=== PATIENT | female | born 1985 | race Caucasian/White ===

== ENCOUNTER 2017-06-06 07:26 | Day surgery (SDC) | payer OTHER ==
[2017-06-01 11:35] VITALS: BMI 35.2
--- NOTE | 2017-06-05 19:33 | PREOP ---
DATE OF ADMISSION: 06/06/2017 ADMITTING DIAGNOSIS: Chronic pansinusitis, nasal polyps. HISTORY OF PRESENT ILLNESS: This 31-year-old female has a longstanding history of nasal and sinus problems. She has had nasal obstruction including snoring, chronic mouth breathing, facial pain, and sinus pain and pressure. She also has anosmia. She has had chronic pansinusitis for several years. Previously recommended surgery was postponed because of and delivery of her baby girl. She is now admitted for endoscopic sinus surgery. PAST MEDICAL HISTORY: Primary medical doctor is Dr. Bo Kaye. MEDICAL ILLNESSES: Patient does have history of anemia and asthma and hypothyroidism. She has undergone previous tonsillectomy as well as sections. There are no reported problems with anesthesia. ALLERGIES TO MEDICATIONS: None known. PRESENT MEDICATIONS: Include levothyroxine, Lexapro, Percocet, ProAir, vitamin D3, and Flovent. PHYSICAL EXAMINATION: General: Patient is well developed female, in no distress. HEENT: Head is normal. Eyes are clear. Ears are unremarkable. The nose has deviated septum, turbinates are hypertrophic. Nasal endoscopy demonstrates moderate nasal polyps obstructing the airway on both sides. The inferior turbinates are edematous as are the middle turbinates. The middle meati have polyps bilaterally. The remainder of her head, neck examination is unremarkable. LABORATORY: Preoperative labs are pending. CT scan of the paranasal sinuses performed at [facility] May 07, 2017, demonstrates chronic sinusitis involving frontal sinuses, ethmoid sinuses, maxillary sinuses, and sphenoid sinuses. There is obstruction of the ostiomeatal units. Orbits and facial bones are intact. IMPRESSION: Chronic pansinusitis. PLAN: Endoscopic sinus surgery to address ethmoid, maxillary, frontal, and sphenoid sinuses. INFORMED CONSENT: Patient understands the indications, alternatives, nature of risks and benefits of proposed surgery. Potential complications including but not limited to anesthesia, bleeding, infection, recurrence, numbness, reduced sense of smell , eye injury or brain injury were discussed in detail. She understands and accepts these risks and wishes to proceed with surgery. Questions were answered fully. IRINA CABRERA M.D. ANNAMARIA/[id number] [facility]
--- NOTE | 2017-06-06 08:52 | HP ---
History & Physical Update - History History: No Change - Physical Physical: No Change - Assessment Assessment: No Change - Plan Plan: No Change
[2017-06-06] MEDS ORDERED: PROPOFOL 20 ML ONE (08:53)
[2017-06-06] MEDS ORDERED: MIDAZOLAM HCL 2 MG/2 ML SINGLE DOSE VIAL ONE (08:54)
[2017-06-06] MEDS ORDERED: BACITRACIN 15 GM TUBE TOPICAL OINTMENT ONE (09:20)
[2017-06-06] MEDS ORDERED: COCAINE HCL 4% TOPICAL SOLUTION 4 ML BOTTLE TP ONE ×2 (09:39→09:42)
[2017-06-06] MEDS ORDERED: DEXAMETHASONE SOD PHOSPHATE 4 MG/1 ML VIAL ONE ×2 (09:40)
[2017-06-06] MEDS ORDERED: HYDROmorphone HCL/PF 1 MG/ML VIAL (FOR PYXIS CHARGING ONLY) ONE (10:56)
[2017-06-06] MEDS ORDERED: BACITRACIN 15 GM TUBE TOPICAL OINTMENT TP ONE (11:29)
[2017-06-06] MEDS ORDERED: TRIMETHOBENZAMIDE HCL 200MG/2ML INJ IM PRN (11:41)
[2017-06-06] MEDS ORDERED: oxyCODONE HCL 5 MG TABLET PO PRN (11:41)
--- NOTE | 2017-06-06 11:42 | OP ---
Operative Note - Note: Operative Date: 06/06/17 Pre-Operative Diagnosis: chronic pansinusitis with polyposis Operation: bilateral endoscopic ethmoidectomy, anterior and posterior. bilateral endoscopic maxillary antrostomy with removal of tissue. bilateral endoscopic frontal sinus exploration. bilateral endoscopic sphenoidotomy. image guidance. therapeutic outfracture of inferior turbinates, bilateral Findings: chronic pansinusitis with polyposis, inferior turbinate hypertrophy Implants: none Post-Operative Diagnosis: Other (same as pre-op with inferior turbinate hypertrophy) Surgeon: Jurgen Sanchez Anesthesiologist/JEWEL STAKER: Leydi Miranda Anesthesia: General Specimens Removed: left nasal polyp, ethmoid and maxillary sinus tissue. right nasal polyp, ethmoid and maxillary sinus tissue. right and left ethmoid sinus tissue (from sock) Estimated Blood Loss (mls): 50 Blood Volume Replaced (mls): 0 Operative Report Dictated: Yes
[2017-06-06] MEDS ORDERED: LACTATED RINGERS SOLUTION 1,000 ML IV SCH (11:45)
[2017-06-06] MEDS ORDERED: ONDANSETRON 4 MG/2 ML VIAL IVPUSH PRN (11:48)
[2017-06-06] MEDS: HYDROmorphone HCL CARPU-JECT 1 MG/1 ML DISP.SYRIN IVPUSH PRN ×2 (11:55→12:35)
[2017-06-06] MEDS ORDERED: HYDROmorphone HCL CARPU-JECT 2 MG/1 ML DISP.SYRIN ONE (12:00)
[2017-06-06 12:14] VITALS: TEMP 98.9
[2017-06-06] MEDS ORDERED: ACETAMINOPHEN 1000 MG/100 ML VIAL (NON FORMULARY) IVPB ONE ×2 (12:35→14:58)
[2017-06-06] MEDS ORDERED: ACETAMINOPHEN INJECTION 100 ML IVPB ONE (12:44)
[2017-06-06 16:23] VITALS: BP 120/66; PULSE 79
--- NOTE | 2017-06-07 16:34 | PATH ---
Surgical Pathology Report Patient Name: MARISA ENG [facility]. Rec. #: [id number] /Age/Gender: 1985 (Age: 31) / F Account: [id number] Location: [facility] SURGICAL Taken: 06/06/2017 Received: 06/06/2017 Reported: 06/07/2017 Physicians: Jurgen Sanchez M.D. Specimen(s) Received A: LEFT NASAL POLYPS AND ETHMOID TISSUE MAXILLARY TISSUE B: RIGHT NASAL POLYPS AND ETHMOID TISSUE MAXILLARY TISSUE C: RIGHT AND LEFT ETHMOID TISSUES Clinical History Bilateral chronic ethmoid, frontal, sphenoidal sinusitis Final Diagnosis A. NASAL POLYPS, ETHMOID AND MAXILLARY TISSUE, LEFT, EXCISION: NASAL POLYPS, INFLAMMATORY TYPE. SINONASAL MUCOSA WITH CHRONIC INFLAMMATION AND FIBROSIS; FRAGMENTS OF SCLEROTIC APPEARING BONE. B. NASAL POLYPS, ETHMOID AND MAXILLARY TISSUE, EXCISION: NASAL POLYPS, INFLAMMATORY TYPE. SINONASAL MUCOSA WITH CHRONIC INFLAMMATION AND FIBROSIS; FRAGMENTS OF SCLEROTIC APPEARING BONE. C. ETHMOID TISSUE RIGHT AND LEFT, ETHMOIDECTOMY: SINONASAL MUCOSA WITH ACTIVE AND CHRONIC INFLAMMATION; FRAGMENTS OF SCLEROTIC APPEARING BONE. Electronically Signed Allen Pires M.D. Gross Description A. Received in formalin labeled "left nasal polyps and ethmoid tissue, maxillary tissue" is a 1.7 x 1.1 x 0.2 cm aggregate of putnam-pink soft tissue and possible bone fragments. The specimen is submitted in toto in one cassette, following decalcification. B. Received in formalin labeled "right nasal polyps and ethmoid tissue, maxillary tissue" is a 2.0 x 1.8 x 0.3 cm aggregate of putnam-pink soft tissue and possible bone fragments. The specimen is submitted in toto in one cassette, following decalcification. C. Received in formalin labeled "right and left ethmoid tissues" is a 5.0 x 4.3 x 0.8 cm aggregate of putnam-red, hemorrhagic soft tissue fragments. A call center representative portion is submitted in one cassette. 06/06/201706/06/2017
--- NOTE | 2017-06-08 08:55 | OP ---
DATE OF OPERATION: 06/06/2017 PREOPERATIVE DIAGNOSIS: Chronic pansinusitis with nasal polyps, anosmia. POSTOPERATIVE DIAGNOSIS: Chronic pansinusitis with nasal polyps, anosmia. PROCEDURE: 1. Bilateral endoscopic ethmoidectomy anterior and posterior. 2. Bilateral endoscopic maxillary antrostomy with removal of tissue. 3. Bilateral endoscopic frontal sinus exploration. 4. Bilateral endoscopic sphenoidotomy. 5. Image guidance. 6. Therapeutic outfracture of inferior turbinates. SURGEON: Jurgen Sanchez MD ANESTHESIOLOGIST: Leydi Miranda DO ANESTHESIA: General via endotracheal tube. INDICATIONS: This 31-year-old female has had longstanding nasal and sinus problems including obstruction, drainage, and discomfort. She also has a poor sense of smell. She has failed to improve with appropriate medical therapy. Serial CT scans demonstrate pansinusitis. Bilateral nasal polyps are present on endoscopy with significant obstruction. She is now brought to surgery for treatment. FINDINGS: Chronic polypoid sinusitis, bilateral nasal polyps, inferior turbinate hypertrophy. DESCRIPTION OF PROCEDURE: The patient was brought to the operating room and placed on the operating table in supine position. General endotracheal anesthesia was induced to a satisfactory level. She was prepped and draped in the usual fashion for surgery. The nasal cavities were packed with cocaine 4% topically. CT scan data was used with the [employer] Navigation system. The patient was registered, and navigation was used intermittently throughout the case in order to identify surgical dissection, locations, and landmarks. The pledgets were removed. Nasal endoscopy with a 0-degree scope showed bilateral inferior turbinate hypertrophy as well as marked nasal polyposis with polypoid degeneration of both middle turbinates. Lidocaine with epinephrine was infiltrated into the middle turbinates and accessible polyps as well as the bilateral nasal evans. Additional cocaine 4% was packed within the nasal meatus. The left paranasal sinus was first addressed. Accessible polyps were removed with the ethmoid forceps. After entering the middle meatus, the uncinate process was removed. Anterior and posterior ethmoidectomy was performed with the ethmoid forceps and Xomed microdebrider with guidance. Markedly redundant polypoid tissue from the middle turbinate was also removed. The lamina papyracea and the fovea ethmoidalis were preserved. The sphenoid ethmoid recess was identified. Polypoid tissue removed from it, and sphenoidotomy created. Attention was then turned towards the left maxillary sinus. The natural ostium was sounded. A middle meatal enterostomy was created, and tissue was removed from the sinus. Next, the frontal recess was dissected with the 70-degree scope and giraffe forceps. The frontal ostium was identified, position confirmed with the frontal sinus pointer. Mild oozing was controlled with electrocauterization. The right paranasal sinus was then addressed. Polyps were removed from the middle meatus with forceps. Uncinate process was removed. Anterior and then posterior ethmoidectomy was performed with forceps and Xomed microdebrider with guidance. Redundant tissue was removed from the polyp middle turbinate. The lamina papyracea and the fovea ethmoidalis were preserved. The sphenoid ethmoid recess was identified, and a sphenoidotomy created. The right maxillary sinus was then sounded, and antrostomy was created removing maxillary sinus tissue. Next, the frontal sinus recess was dissected using the 70-degree scope and giraffe forceps. The frontal ostium was identified and confirmed with the navigation system. Mild oozing was controlled with electrocauterization. Finally, inferior turbinates were mildly obstructive, but this was primarily soft tissue. Therapeutic outfracture was performed bilaterally. Reinspection of the sinuses found them to be patent and open without bleeding. Nasal packing was placed and hydrated. Telfa gauze was packed in the inferior nasal cavities. Mustache dressing was placed. The patient tolerated the procedure well. She was then awakened from general anesthesia and transferred to the PACU in stable condition. Estimated blood loss was 50 mL. She received crystalloid during the procedure. Specimens included left nasal polyp ethmoid maxillary sinus tissue as well as right polyp ethmoid and maxillary sinus tissue, which were sent to Pathology for studies. There was also right and left ethmoid tissue from the suction trap. There were no complications. JURGEN SANCHEZ M.D. [id number] [facility]
== END 2017-06-06 15:10 | disposition home or self-care (01) ==
LOC: JASU-SURG 07:26
PROVIDERS: ATTEND Otolaryngology
PROC: 09TV4ZZ Resection of Left Ethmoid Sinus, Percutaneous Endoscopic Approach (ICD-10-PCS; 2017-06-06)
PROC: 09TU4ZZ Resection of Right Ethmoid Sinus, Percutaneous Endoscopic Approach (ICD-10-PCS; 2017-06-06)
PROC: 8E09XBZ Computer Assisted Procedure of Head and Neck Region (ICD-10-PCS; 2017-06-06)
PROC: 099R4ZZ Drainage of Left Maxillary Sinus, Percutaneous Endoscopic Approach (ICD-10-PCS; 2017-06-06)
PROC: 099Q4ZZ Drainage of Right Maxillary Sinus, Percutaneous Endoscopic Approach (ICD-10-PCS; 2017-06-06)
PROC: 8E09XBZ Computer Assisted Procedure of Head and Neck Region (ICD-10-PCS; principal; 2017-06-06 09:00)
DX: J32.4 Chronic pansinusitis (principal); J33.9 Nasal polyp, unspecified; J34.3 Hypertrophy of nasal turbinates
CPT/HCPCS: 84703; 88304-TC; 88311-TC; 94760

== ENCOUNTER 2020-04-30 22:50 | Emergency (ER) | payer OTHER ==
[~2020-04-30 22:50] MED LIST: LIDOCAINE PATCH REMOVAL MC SCH
[2020-04-30 22:58] VITALS: BP 125/77; PULSE 100; TEMP 98.8; BMI 36.1
[2020-04-30] MEDS ORDERED: ACETAMINOPHEN 325 MG TABLET (FP) PO ONE (23:18)
[2020-04-30] MEDS ORDERED: ACETAMINOPHEN 325 MG TABLET (FP) ONE (23:20)
[2020-04-30] MEDS ORDERED: METHOCARBAMOL 500 MG TABLET PO ONE (23:42)
[2020-04-30] MEDS ORDERED: LIDOCAINE 5% TOPICAL PATCH TP ONE (23:42)
[2020-04-30] MEDS ORDERED: METHOCARBAMOL 500 MG TABLET ONE (23:47)
[2020-04-30] MEDS ORDERED: LIDOCAINE 5% TOPICAL PATCH ONE (23:47)
[2020-05-01] MEDS ORDERED: KETOROLAC TROMETHAMINE 60 MG/2 ML VIAL IM ONE (00:21)
[2020-05-01] MEDS ORDERED: KETOROLAC TROMETHAMINE 60 MG/2 ML VIAL ONE (00:38)
== END 2020-05-01 00:43 | disposition home or self-care (01) ==
LOC: JER 22:50
PROC: 3E0233Z Introduction of Anti-inflammatory into Muscle, Percutaneous Approach (ICD-10-PCS; principal; 2020-04-30)
DX: M54.5 Low back pain (principal)
CPT/HCPCS: 72100-TC-FY; 84703; 99285-25

== ENCOUNTER 2022-02-19 20:30 | Inpatient (IN) | payer OTHER ==
[2022-02-19] MEDS ORDERED: SODIUM CHLORIDE 0.9% 500 ML INFUS.BAG IV ONE (21:36)
[2022-02-19] MEDS ORDERED: ACETAMINOPHEN 1000 MG/100 ML BAG IVPB ONE (21:36)
[2022-02-19] MEDS ORDERED: ONDANSETRON 4 MG/2 ML VIAL IVPUSH ONE (21:37)
[2022-02-19] MEDS ORDERED: LIDOCAINE 5% TOPICAL PATCH TP ONE (21:38)
[2022-02-19] MEDS ORDERED: LIDOCAINE 5% TOPICAL PATCH ONE (22:13)
[2022-02-19] MEDS ORDERED: ONDANSETRON 4 MG/2 ML VIAL ONE (22:13)
[2022-02-19] MEDS ORDERED: ACETAMINOPHEN INJECTION 100 ML IVPB ONE (22:13)
[2022-02-19] MEDS: LIDOCAINE PATCH REMOVAL MC SCH (22:26)
[2022-02-19 22:27] LABS: BASO % 0.7 % (0-2.0); EOS % 6.2 % (0-4.5); HEMATOCRIT 41.6 % (32.4-45.2); HEMOGLOBIN 13.9 GM/dL (10.7-15.3); LYMPH % 28.2 % (8-40); MCH 26.9 pg (25.7-33.7); MCHC 33.4 g/dl (32.0-36.0); MEAN CELL VOLUME 80.5 fl (80-96); MEAN PLT VOLUME 8.6 fl (7.5-11.1); MONO % 5.7 % (3.8-10.2); NEUT % 59.2 % (42.8-82.8); PLATELET COUNT 174 10^3/uL (134-434); RBC 5.18 M/mm3 (3.60-5.2); RDW 15.2 % (11.6-15.6); WHITE BLOOD COUNT 9.1 K/mm3 (4.0-10.0)
[2022-02-19 22:30] LABS: EPI CELLS >36 /uL (0-25.1); HYALINE CASTS 6 /uL (0-3.1); URINE APPEARANCE CLEAR; URINE BACTERIA 3885 /uL (0-1359); URINE BILIRUBIN NEGATIVE (NEGATIVE); URINE COLOR YELLOW; URINE GLUCOSE (UA) NEGATIVE (NEGATIVE); URINE KETONE TRACE (NEGATIVE); URINE LEUK ESTERASE TRACE (NEGATIVE); URINE NITRITE NEGATIVE (NEGATIVE); URINE PROTEIN TRACE (NEGATIVE); URINE RBC 9 /uL (0-23.9); URINE UROBILINOGEN 0.2 mg/dL (0.2-1.0); URINE WBC 85 /uL (0-25.8)
[2022-02-19 22:53] LABS: ALBUMIN 4.7 g/dl (3.4-5.0); CALCIUM 9.3 mg/dL (8.5-10.1)
[2022-02-19 22:54] LABS: BLOOD UREA NITROGEN 16.7 mg/dL (7-18)
[2022-02-19 22:58] LABS: BILIRUBIN,TOTAL 0.3 mg/dL (0.2-1)
[2022-02-19] MEDS ORDERED: morphine CARPU-JECT 4 MG/1 ML DISP.SYRIN IVPUSH ONE (23:19)
[2022-02-20] MEDS ORDERED: ONDANSETRON *ODT* 4 MG TABLET SL ONE (01:05)
[2022-02-20] MEDS ORDERED: morphine SULFATE 4 MG/ML VIAL ONE (01:10)
[2022-02-20] MEDS ORDERED: ONDANSETRON *ODT* 4 MG TABLET ONE (01:10)
[2022-02-20] MEDS ORDERED: PIPERACILLIN/TAZOB 3.375 GM 3.375 GM in DEXTROSE 5%-WATER - 50 ML IVPB ONE (04:00)
[2022-02-20] MEDS ORDERED: ACETAMINOPHEN 325 MG TABLET (FP) PO PRN (04:15)
[2022-02-20 04:24] LABS: INR 1.25 (0.83-1.09); PROTHROMBIN TIME (PATIENT) 14.4 SEC (9.7-13.0)
[2022-02-20 04:27] LABS: ACTIVATED PTT 32.3 SECONDS (25.2-36.5)
[2022-02-20] MEDS ORDERED: ALBUTEROL SO4 HFA INHALER IH PRN (04:44)
[2022-02-20] MEDS ORDERED: CEFTRIAXONE 1 GM/50 ML BAG ONE (04:50)
[2022-02-20] MEDS: CEFTRIAXONE 1 GM in DEXTROSE 5%-WATER - 50 ML IVPB SCH (05:00)
[2022-02-20] MEDS: SODIUM CHLORIDE 1,000 ML IV SCH ×2 (05:00→23:00)
[2022-02-20] MEDS ORDERED: METOCLOPRAMIDE HCL INJECTION 10 MG/2 ML VIAL IVPUSH PRN (05:10)
[2022-02-20] MEDS ORDERED: ALBUTEROL SO4 HFA INHALER IH ONE (06:22)
[2022-02-20] MEDS ORDERED: METOCLOPRAMIDE HCL INJECTION 10 MG/2 ML VIAL ONE (06:22)
[2022-02-20] MEDS ORDERED: LEVOTHYROXINE NA 200 MCG TABLET PO SCH (07:00)
[2022-02-20 07:20] LABS: BASO % 0.7 % (0-2.0); EOS % 6.5 % (0-4.5); HEMATOCRIT 38.3 % (32.4-45.2); HEMOGLOBIN 12.6 GM/dL (10.7-15.3); MCH 26.7 pg (25.7-33.7); MEAN CELL VOLUME 80.9 fl (80-96); MONO % 5.7 % (3.8-10.2); NEUT % 58.1 % (42.8-82.8); PLATELET COUNT 159 10^3/uL (134-434); RBC 4.73 M/mm3 (3.60-5.2); RDW 14.8 % (11.6-15.6); WHITE BLOOD COUNT 7.1 K/mm3 (4.0-10.0)
[2022-02-20 07:47] LABS: CALCIUM 8.5 mg/dL (8.5-10.1); INR 1.26 (0.83-1.09); PROTHROMBIN TIME (PATIENT) 14.5 SEC (9.7-13.0)
[2022-02-20 07:48] LABS: ALBUMIN 3.9 g/dl (3.4-5.0); BLOOD UREA NITROGEN 15.2 mg/dL (7-18); MAGNESIUM 1.9 mg/dL (1.8-2.4)
[2022-02-20 07:51] LABS: PHOSPHOROUS 3.3 mg/dL (2.5-4.9)
[2022-02-20 07:52] LABS: TOT PROT 6.9 g/dl (6.4-8.2)
[2022-02-20 07:53] LABS: BILIRUBIN,TOTAL 0.4 mg/dL (0.2-1)
[2022-02-20] MEDS: LEVOTHYROXINE PO SCH (09:14)
[2022-02-20] MEDS ORDERED: LEVOTHYROXINE SODIUM 100 MCG VIAL IVPUSH SCH (10:00)
[2022-02-20] MEDS ORDERED: ZOLPIDEM TARTRATE 5 MG TABLET PO PRN (10:00)
[2022-02-20] MEDS: PANTOPRAZOLE 40 MG TABLET PO SCH (11:30)
[2022-02-20] MEDS: VENLAFAXINE HCL 75 MG E.R. CAPSULES PO SCH (11:30)
[2022-02-20] MEDS ORDERED: PANTOPRAZOLE 40 MG TABLET PO ONE (11:44)
[2022-02-20] MEDS ORDERED: ONDANSETRON 4 MG/2 ML VIAL ONE (17:51)
[2022-02-20] MEDS: ONDANSETRON 4 MG/2 ML VIAL IVPUSH PRN (17:52)
[2022-02-20 18:57] VITALS: BMI 36.8
[2022-02-20] MEDS: LIDOCAINE PATCH REMOVAL MC SCH (21:25)
[2022-02-20] MEDS ORDERED: traZODone HCL 100 MG TABLET (FP) PO SCH (22:00)
[2022-02-21] MEDS: ONDANSETRON 4 MG/2 ML VIAL IVPUSH PRN (04:03)
[2022-02-21] MEDS: LEVOTHYROXINE PO SCH (06:19)
[2022-02-21] MEDS: SODIUM CHLORIDE 1,000 ML IV SCH (06:20)
[2022-02-21 07:17] LABS: CALCIUM 8.2 mg/dL (8.5-10.1)
[2022-02-21 07:18] LABS: ALBUMIN 3.1 g/dl (3.4-5.0); BLOOD UREA NITROGEN 12.6 mg/dL (7-18)
[2022-02-21 07:21] LABS: CREATININE 0.9 mg/dL (0.55-1.3)
[2022-02-21 07:22] LABS: TOT PROT 5.8 g/dl (6.4-8.2)
[2022-02-21 07:23] LABS: BILIRUBIN,TOTAL 0.3 mg/dL (0.2-1)
[2022-02-21 07:24] LABS: HEMOGLOBIN 11.2 GM/dL (10.7-15.3); MCH 26.9 pg (25.7-33.7); MCHC 33.1 g/dl (32.0-36.0); MEAN CELL VOLUME 81.4 fl (80-96); MEAN PLT VOLUME 9.2 fl (7.5-11.1); PLATELET COUNT 130 10^3/uL (134-434); RBC 4.18 M/mm3 (3.60-5.2); RDW 14.7 % (11.6-15.6); WHITE BLOOD COUNT 5.8 K/mm3 (4.0-10.0)
[2022-02-21] MEDS ORDERED: BUPIVACAINE HCL/PF 0.5% (5MG/ML) 10 ML VIAL ONE (07:29)
[2022-02-21] MEDS ORDERED: PROPOFOL 20 ML ONE (08:03)
[2022-02-21] MEDS ORDERED: MIDAZOLAM HCL 2 MG/2 ML SINGLE DOSE VIAL ONE (08:03)
[2022-02-21] MEDS ORDERED: SUCCINYLCHOLINE CHLORIDE 200 MG/10 ML SYRINGE ONE (08:03)
[2022-02-21] MEDS ORDERED: ROCURONIUM BROMIDE 50 MG/5 ML SYRINGE ONE (08:03)
[2022-02-21] MEDS ORDERED: ALBUTEROL SO4 HFA INHALER IH ONE (08:03)
[2022-02-21] MEDS ORDERED: LACTATED RINGERS SOLUTION 1,000 ML IV SCH (08:15)
[2022-02-21] MEDS ORDERED: ONDANSETRON 4 MG/2 ML VIAL ONE (08:33)
[2022-02-21] MEDS ORDERED: DEXAMETHASONE SOD PHOSPHATE 4 MG/1 ML VIAL ONE (08:33)
[2022-02-21] MEDS ORDERED: HYDROmorphone HCl 2 MG/ML VIAL ONE (09:18)
[2022-02-21] MEDS ORDERED: NEOSTIGMINE METHYLSULFATE 0.5 MG/1 ML - 10 ML MDV ONE (10:09)
[2022-02-21] MEDS ORDERED: ZOLPIDEM TARTRATE 5 MG TABLET PO PRN (12:16)
[2022-02-21] MEDS ORDERED: ALBUTEROL SO4 HFA INHALER IH PRN (12:16)
[2022-02-21] MEDS ORDERED: ONDANSETRON 4 MG/2 ML VIAL IVPUSH PRN (12:16)
[2022-02-21] MEDS ORDERED: METOCLOPRAMIDE HCL INJECTION 10 MG/2 ML VIAL IVPUSH PRN (12:16)
[2022-02-21] MEDS: LACTATED RINGERS SOLUTION 1,000 ML IV SCH (12:49)
[2022-02-21] MEDS ORDERED: oxyCODONE HCL 5 MG TABLET PO PRN (12:56)
[2022-02-21] MEDS: oxyCODONE HCL 5 MG TABLET PO PRN ×2 (13:11→16:58)
[2022-02-21] MEDS: VENLAFAXINE HCL 75 MG E.R. CAPSULES PO SCH (13:36)
[2022-02-21] MEDS: PANTOPRAZOLE 40 MG TABLET PO SCH (13:37)
[2022-02-21] MEDS: CEFTRIAXONE 1 GM in DEXTROSE 5%-WATER - 50 ML IVPB SCH (13:37)
[2022-02-21] MEDS ORDERED: LIDOCAINE PATCH REMOVAL MC SCH (22:00)
[2022-02-21] MEDS ORDERED: traZODone HCL 100 MG TABLET (FP) PO SCH (22:00)
[2022-02-22] MEDS: oxyCODONE HCL 5 MG TABLET PO PRN ×4 (01:30→15:52)
[2022-02-22] MEDS: LACTATED RINGERS SOLUTION 1,000 ML IV SCH ×2 (02:27→12:05)
[2022-02-22] MEDS ORDERED: LEVOTHYROXINE PO SCH (07:00)
[2022-02-22] MEDS ORDERED: KETOROLAC TROMETHAMINE 30 MG/1 ML VIAL IVPUSH ONE (08:07)
[2022-02-22] MEDS ORDERED: PANTOPRAZOLE 40 MG TABLET PO SCH (10:00)
[2022-02-22] MEDS ORDERED: VENLAFAXINE HCL 75 MG E.R. CAPSULES PO SCH (10:00)
[2022-02-22 10:07] LABS: BASO % 0.4 % (0-2.0); HEMATOCRIT 34.1 % (32.4-45.2); HEMOGLOBIN 11.7 GM/dL (10.7-15.3); LYMPH % 13.6 % (8-40); MCH 27.3 pg (25.7-33.7); MCHC 34.2 g/dl (32.0-36.0); MEAN CELL VOLUME 79.9 fl (80-96); MEAN PLT VOLUME 9.4 fl (7.5-11.1); MONO % 4.6 % (3.8-10.2); NEUT % 72.4 % (42.8-82.8); PLATELET COUNT 126 10^3/uL (134-434); RBC 4.26 M/mm3 (3.60-5.2); RDW 14.8 % (11.6-15.6); WHITE BLOOD COUNT 7.3 K/mm3 (4.0-10.0)
[2022-02-22 10:24] LABS: CALCIUM 8.5 mg/dL (8.5-10.1)
[2022-02-22 10:25] LABS: ALBUMIN 3.3 g/dl (3.4-5.0); BLOOD UREA NITROGEN 8.6 mg/dL (7-18)
[2022-02-22 10:28] LABS: CREATININE 0.9 mg/dL (0.55-1.3)
[2022-02-22 10:30] LABS: BILIRUBIN,TOTAL 0.3 mg/dL (0.2-1); TOT PROT 5.9 g/dl (6.4-8.2)
[2022-02-22] MEDS ORDERED: POTASSIUM CHLORIDE TABS 20 MEQ TABLET.ER (FP) PO ONE ×2 (11:15→16:20)
[2022-02-22 11:27] VITALS: PULSE 97
[2022-02-22 14:39] VITALS: BP 111/64; TEMP 98.9
== END 2022-02-22 17:37 | disposition home or self-care (01) | DRG 263 ==
LOC: JER 20:30 → JERBED 02-20 02:58 → J6S 02-20 19:42
PROVIDERS: ADMIT Hospitalist; ATTEND Internal Medicine
PROC: 0FT44ZZ Resection of Gallbladder, Percutaneous Endoscopic Approach (ICD-10-PCS; principal; 2022-02-21 08:00)
DX: K80.00 Calculus of gallbladder with acute cholecystitis without obstruction (principal); N28.1 Cyst of kidney, acquired; K76.0 Fatty (change of) liver, not elsewhere classified; F32.A Depression, unspecified; E03.9 Hypothyroidism, unspecified; D64.9 Anemia, unspecified; J45.909 Unspecified asthma, uncomplicated; F41.9 Anxiety disorder, unspecified; G47.00 Insomnia, unspecified; D51.0 Vitamin B12 deficiency anemia due to intrinsic factor deficiency; K21.9 Gastro-esophageal reflux disease without esophagitis; K42.9 Umbilical hernia without obstruction or gangrene
CPT/HCPCS: 36415; 74177-TC; 76705-TC; 80053; 81003; 83690; 83735; 84100; 84439; 84443; 84703; 85025; 85027; 85610; 85730; 86850; 86900; 86901; 87086; 88304-TC; 93005; 93010; 94760; 99285-25; C9803-CS; Q0162; U0003; U0005

== ENCOUNTER 2023-01-12 04:44 | Observation (INO) | payer OTHER ==
[2023-01-12] MEDS ORDERED: ALBUTEROL SO4 2.5/IPRATROPIUM 0.5 INH SOL 3 ML VIAL.NEB. NEB ONE ×2 (04:48→04:59)
[2023-01-12] MEDS ORDERED: methylPREDNISolone NA SUCC 125 MG/2 ML VIAL IVPB ONE (04:51)
[2023-01-12] MEDS ORDERED: MAGNESIUM SULF 50% (8.12 MEQ/2 ML-1 GM VIAL) IVPB ONE (04:51)
[2023-01-12] MEDS ORDERED: methylPREDNISolone NA SUCC 125 MG/2 ML VIAL ONE (04:52)
[2023-01-12] MEDS ORDERED: MAGNESIUM SULFATE IN WATER 2 GM/50 ML IVPB IVPB ONE (04:53)
[2023-01-12 05:28] VITALS: BMI 33.2
[2023-01-12 05:33] LABS: BASO % 0.5 % (0-2.0); EOS % 15.2 % (0-4.5); HEMATOCRIT 38.9 % (32.4-45.2); HEMOGLOBIN 12.8 GM/dL (10.7-15.3); LYMPH % 31.9 % (8-40); MCH 25.7 pg (25.7-33.7); MCHC 32.8 g/dl (32.0-36.0); MEAN CELL VOLUME 78.5 fl (80-96); MEAN PLT VOLUME 8.9 fl (7.5-11.1); MONO % 6.6 % (3.8-10.2); NEUT % 45.8 % (42.8-82.8); PLATELET COUNT 152 10^3/uL (134-434); RBC 4.96 M/mm3 (3.60-5.2); RDW 15.1 % (11.6-15.6); WHITE BLOOD COUNT 6.2 K/mm3 (4.0-10.0)
[2023-01-12 06:03] LABS: ALBUMIN 3.9 g/dl (3.4-5.0); BLOOD UREA NITROGEN 11.9 mg/dL (7-18); MAGNESIUM 1.8 mg/dL (1.8-2.4)
[2023-01-12 06:08] LABS: BILIRUBIN,TOTAL 0.4 mg/dL (0.2-1); TOT PROT 7.1 g/dl (6.4-8.2)
[2023-01-12 06:11] LABS: N-TERMINAL BNP 55.4 pg/ml (5-125)
[2023-01-12] MEDS ORDERED: CEFTRIAXONE 1,000 MG in DEXTROSE 5%-WATER - 50 ML IVPB ONE (06:40)
[2023-01-12] MEDS ORDERED: AZITHROMYCIN IVPB 500 MG in DEXTROSE 5%-WATER - 250 ML IVPB ONE (06:40)
[2023-01-12] MEDS ORDERED: CEFTRIAXONE 1 GM/50 ML BAG ONE (06:51)
[2023-01-12] MEDS ORDERED: AZITHROMYCIN IVPB 500 MG/250 ML BAG IVPB ONE (08:28)
[2023-01-12 13:25] VITALS: BP 121/71; PULSE 95; RESP 19; TEMP 99
== END 2023-01-12 13:25 | disposition home or self-care (01) ==
LOC: JER 04:44 → JERBED 06:19
PROVIDERS: ADMIT Internal Medicine; ATTEND Internal Medicine
PROC: 3E033GC Introduction of Other Therapeutic Substance into Peripheral Vein, Percutaneous Approach (ICD-10-PCS; principal; 2023-01-12)
DX: J45.41 Moderate persistent asthma with (acute) exacerbation (principal); R06.00 Dyspnea, unspecified; E66.8 Other obesity; Z68.33 Body mass index [BMI] 33.0-33.9, adult
CPT/HCPCS: 0241U-QW; 36415; 71045-TC-FY; 80053; 83735; 83880; 84484; 84703; 85025; 93005; 93010; 96365; 96368; 96375; 99285-25; G0378

== ENCOUNTER 2023-07-02 15:58 | Emergency (ER) | payer OTHER ==
[2023-07-02 16:30] VITALS: BP 120/70; PULSE 86; RESP 20; TEMP 98.3; BMI 33.2
[2023-07-02] MEDS ORDERED: KETOROLAC TROMETHAMINE 60 MG/2 ML VIAL IM ONE (16:55)
[2023-07-02] MEDS ORDERED: diazePAM 5 MG TABLET PO ONE (16:55)
[2023-07-02] MEDS ORDERED: KETOROLAC TROMETHAMINE 60 MG/2 ML VIAL ONE (16:57)
[2023-07-02] MEDS ORDERED: diazePAM 5 MG TABLET ONE (16:57)
== END 2023-07-02 19:14 | disposition home or self-care (01) ==
LOC: JERFT 15:58
PROC: 3E0233Z Introduction of Anti-inflammatory into Muscle, Percutaneous Approach (ICD-10-PCS; principal; 2023-07-02)
DX: M54.50 Low back pain, unspecified (principal); N20.0 Calculus of kidney; M79.10 Myalgia, unspecified site; S70.02XA Contusion of left hip, initial encounter; K42.9 Umbilical hernia without obstruction or gangrene; W22.8XXA Striking against or struck by other objects, initial encounter
CPT/HCPCS: 72100-TC-FY; 74176-TC; 99284-25